=== PATIENT | male | born 1965 | race Hispanic/Latino ===

== ENCOUNTER 2022-02-25 16:27 | Emergency (ER) | payer SELFPAY ==
[2022-02-25] VITALS (12 sets, daily range): BP systolic 126–147; BP diastolic 82–94
[~2022-02-25] VITALS: Ht 167.6 cm; Wt 68.2 kg
[2022-02-25] MEDS ORDERED: NAPROXEN500 MG PO (19:18)
== END 2022-02-25 19:49 | disposition home or self-care (01) | DRG 156 ==
LOC: ED 16:27
DX: S01.21XA Laceration without foreign body of nose, initial encounter (principal); V19.3XXA Pedal cyclist (driver) (passenger) injured in unspecified nontraffic accident, initial encounter